=== PATIENT | female | born 1985 | race Caucasian/White ===

== ENCOUNTER 2023-12-02 20:34 | Emergency (ER) | payer SELFPAY ==
[2023-12-02 20:44] VITALS: BP 115/52; PULSE 100; RESP 20; TEMP 99.2; BMI 23.3
[2023-12-02] MEDS ORDERED: ACETAMINOPHEN 325 MG TABLET (FP) ONE (22:06)
[2023-12-02] MEDS: ACETAMINOPHEN 325 MG TABLET (FP) PO ONE (22:10)
== END 2023-12-02 22:10 | disposition home or self-care (01) ==
LOC: JERFT 20:34
DX: J10.1 Influenza due to other identified influenza virus with other respiratory manifestations (principal); R05.9 Cough, unspecified; R09.81 Nasal congestion; R50.9 Fever, unspecified; M79.10 Myalgia, unspecified site; R07.0 Pain in throat; R53.81 Other malaise; R11.2 Nausea with vomiting, unspecified; Z20.822 Contact with and (suspected) exposure to COVID-19
CPT/HCPCS: 0241U-QW; 99283-25